=== PATIENT | male | born 1960 | race Caucasian/White ===

== ENCOUNTER 2024-06-09 17:29 | Emergency (ER) | payer MEDICAID, OTHER, SELFPAY ==
[2024-06-09] VITALS (11 sets, daily range): BP systolic 173–201; BP diastolic 87–95; PULSE 60; RESP 12–22; TEMP 36.6; O2SAT 94–99; BMI 32.8
--- NOTE | 2024-06-09 17:38 | DI.RAD.S_ITS ---
PROCEDURE: XR CHEST 1V INDICATIONS: chest pain TECHNIQUE: One view of the chest was acquired. COMPARISON: None. FINDINGS: Surgical changes and devices: Pacemaker. Lungs and pleura: Lungs are clear. No pleural effusions or pneumothorax. Mediastinum: Mediastinal contours appear normal. Heart size is normal. Bones and chest wall: No suspicious bony lesions. Overlying soft tissues appear unremarkable. IMPRESSION: No acute pulmonary process. Dictated by: Gracia Fuentes M.D. on 06/09/2024 at 18:02 Approved by: Gracia Fuentes M.D. on 06/09/2024 at 18:02
[2024-06-09 17:44] LABS: Add Manual Diff / Slide Review NO; Basophils Absolute Auto 100 /uL (0-100); Basophils Percent Auto 1.4 % (0-2); Eosinophils Absolute Auto 300 /uL (0-450); Eosinophils Percent Auto 5.1 % (2-4); Hematocrit 44.4 % (41-53); Hemoglobin 15.2 g/dL (13.5-17.5); Lymphocytes Absolute Auto 2000 /uL (1100-4500); Lymphocytes Percent Auto 30.1 % (25-40); Mean Corpuscular HGB Conc 34.1 % (30-36); Mean Corpuscular Hemoglobin 30.7 PG (26-34); Mean Corpuscular Volume 89.8 fL (80-100); Monocytes Absolute Auto 500 /uL (0-900); Monocytes Percent Auto 7.6 % (3-14); Neutrophils Absolute Auto 3700 /uL (1500-7000); Neutrophils Percent Auto 55.8 % (50-75); Platelet Count 262 X10^3/uL (150-400); Red Blood Cell Count 4.94 X10^6/uL (4.5-5.9); Red Cell Distribution Width 13.8 % (11.6-14.8); White Blood Cell Count 6.7 X10^3/uL (4.5-11.0)
[2024-06-09 17:57] LABS: Lactate (Lactic Acid) 2.3 mmol/L (0.7-2.1)
[2024-06-09 17:58] LABS: Alanine Aminotransferase 26 IU/L (<50); Albumin 3.9 g/dL (3.5-5.0); Albumin Globulin Ratio 1.3 (1.0-2.8); Alkaline Phosphatase 70 U/L (38-126); Aspartate Aminotransferase 20 IU/L (17-59); BUN Creatinine Ratio 21.1 (6-22); Bilirubin Total 0.6 mg/dL (0.2-1.3); Blood Urea Nitrogen 20 mg/dL (9-20); Calcium 9.1 mg/dL (8.4-10.2); Carbon Dioxide 22 mmol/L (22-32); Chloride 107 mmol/L (98-107); Creatine Kinase 54 U/L (55-170); Estimated Glomerular Filt Rate > 60 mL/min (>60); Globulin 3.1 g/dL (1.7-4.1); Glucose 280 mg/dL (80-110); HEMOLYSIS < 15 (0-50); Lipase 808 U/L (23-300); Potassium 4.4 mmol/L (3.4-5.1); Sodium 137 mmol/L (137-145)
[2024-06-09 18:11] LABS: Troponin I < 0.012 ng/mL (0.01-0.034)
[2024-06-09] MEDS: SODIUM CHLORIDE 0.9% 1,000 ML 150 ML IV (18:18)
--- NOTE | 2024-06-09 18:32 | ED_ITS ---
HPI - General Adult General Chief complaint: Diabetic Problem Stated complaint: light headed/ [place] Time Seen by Provider: 06/09/24 18:16 Source: patient and EMS Mode of arrival: EMS History of Present Illness HPI narrative: Patient 63-year-old male history of insulin-dependent diabetes pacemaker secondary to atrial fibrillation not on anticoagulation presenting today with a glucose problem. He reports that he was hypoglycemic with his continuous glucose monitor reporting in the 50s this afternoon. He says that he has not really eaten much today he gave himself 10 units of his Lantus last night this does not feel great. He reports that the glucose monitor said it was 55 he took a tbsp of honey and went to the fire department. There glucose monitor said it was in the 200s and brought him here to the ED. He denies any sort of symptoms he has no fever no chills no headache no sore throat chest pain shortness of breath palpitations abdominal pain nausea vomiting or any other symptoms. I have reviewed his glucose monitor it does show that he had glucose this morning the 115-120 range and then did drop off in the afternoon 53-[address] Are POC glucose shows 305. Patient History Social History Smoking Status: Former smoker Smoking Status: Former smoker alcohol intake frequency: 0-2 drinks per day Substance Use Type: does not use Exam Initial Vital Signs Initial Vital Signs: Vital Signs Pulse Rate 60 06/09/24 17:38 Respiratory Rate 13 06/09/24 17:38 Pulse Oximetry 96 06/09/24 17:38 GENERAL: Alert 63-year-old male and in no acute distress. HEENT: Head atraumatic,EOMI, pupils reactive, face symmetric, moist mucous membranes CARDIOVASCULAR: Regular rate and rhythm without murmurs, rubs or gallops. RESPIRATORY: Breath sounds equal bilaterally, no wheezes rales or rhonchi. ABDOMEN: Soft, nontender. Normoactive bowel sounds all 4 quadrants. No guarding or rebound. EXTREMITIES: Normal range of motion, no clubbing or edema. Neurovascularly intact NEUROLOGICAL: Alert and oriented x4.Normal gait and speech. [employer] strength equal bilaterally moving all extremities SKIN: Warm, dry, no laceration, no petechiae, no rashes or lesions. Course Orders Ordered: Discontinued Medications Sodium Chloride (Normal Saline 0.9%) 1,000 mls @ 150 mls/hr IV CONT OMARI Last Infusion: 06/09/24 20:48 Dose: Infused Documented By: Admin: 06/09/24 18:18 Dose: 150 mls/hr Documented By: CHELSEA Vital Signs Vital signs: Vital Signs - 8 hr 06/09/24 17:38 06/09/24 17:43 06/09/24 18:00 Temperature 97.9 F Pulse Rate 60 60 60 Respiratory Rate 13 20 15 Blood Pressure 175/87 H Pulse Oximetry 96 99 96 Oxygen Delivery Method Room Air 06/09/24 18:30 06/09/24 18:54 06/09/24 18:54 Temperature Pulse Rate 60 60 Respiratory Rate 12 14 Blood Pressure 201/95 H Pulse Oximetry 94 97 Oxygen Delivery Method 06/09/24 18:55 06/09/24 18:55 06/09/24 19:00 Temperature Pulse Rate 60 60 Respiratory Rate 16 13 Blood Pressure 187/93 H Pulse Oximetry 97 96 Oxygen Delivery Method 06/09/24 19:30 06/09/24 20:00 06/09/24 20:30 Temperature Pulse Rate 60 60 60 Respiratory Rate 22 16 15 Blood Pressure Pulse Oximetry 95 96 96 Oxygen Delivery Method 06/09/24 20:36 06/09/24 20:36 Temperature Pulse Rate 60 Respiratory Rate 17 Blood Pressure 173/89 H Pulse Oximetry 97 Oxygen Delivery Method Medical Decision Making Lab Data 06/09/24 17:36 06/09/24 17:36 Labs: Lab Results 06/09/24 06/09/24 06/09/24 Range/Units 17:36 17:55 19:30 WBC 6.7 (4.5-11.0) X10^3/uL RBC 4.94 (4.5-5.9) X10^6/uL Hgb 15.2 (13.5-17.5) g/dL Hct 44.4 (41-53) % MCV 89.8 (80-100) fL MCH 30.7 (26-34) PG MCHC 34.1 (30-36) % RDW 13.8 (11.6-14.8) % Plt Count 262 (150-400) X10^3/uL Neut % (Auto) 55.8 (50-75) % Lymph % (Auto) 30.1 (25-40) % [place] % (Auto) 7.6 (3-14) % Eos % (Auto) 5.1 H (2-4) % Baso % (Auto) 1.4 (0-2) % Neut # (Auto) 3700 (3695-1710) /uL Lymph # (Auto) 2000 (7576-2270) /uL [place] # (Auto) 500 (0-900) /uL Eos # (Auto) 300 (0-450) /uL Baso # (Auto) 100 (0-100) /uL Sodium 137 (137-145) mmol/L Potassium 4.4 (3.4-5.1) mmol/L Chloride 107 (98-107) mmol/L Carbon Dioxide 22 (22-32) mmol/L BUN 20 (9-20) mg/dL Creatinine 0.95 (0.66-1.25) mg/dL Estimated GFR > 60 (>60) mL/min BUN/Creatinine Ratio 21.1 (6-22) Glucose 280 H (80-110) mg/dL Lactate 2.3 H 1.7 (0.7-2.1) mmol/L Calcium 9.1 (8.4-10.2) mg/dL Total Bilirubin 0.6 (0.2-1.3) mg/dL AST 20 (17-59) IU/L ALT 26 (<50) IU/L Alkaline Phosphatase 70 (38-126) U/L Total Creatine Kinase 54 L (55-170) U/L Troponin I < 0.012 (0.01-0.034) ng/mL Total Protein 7.0 (6.3-8.2) g/dL Albumin 3.9 (3.5-5.0) g/dL Globulin 3.1 (1.7-4.1) g/dL Albumin/Globulin Ratio 1.3 (1.0-2.8) Lipase 808 H (23-300) U/L SARS-CoV-2 (PCR) Negative (Negative) Influenza A (RT-PCR) Flu a negative (NEGATIVE) Influenza B (RT-PCR) Flu b negative (NEGATIVE) RSV (PCR) Negative (Negative) Point of Care Testing Glucose POC 242 Urine Dip Bedside Urine Glucose 1000 mg/dl Bedside Urine Bilirubin - Negative Bedside Urine Ketone - Negative Urine Specific [place] 1.020 Bedside Urine Occult Blood - Negative Bedside Urine pH 6.5 Bedside Urine Protein - Negative Bedside Urine Urobilinogen - Negative Bedside Urine Nitrite - Negative Bedside Urine Leukocytes - Negative Esterase Point of care testing: Point of Care Testing Glucose POC 242 Urine Dip Bedside Urine Glucose 1000 mg/dl Bedside Urine Bilirubin - Negative Bedside Urine Ketone - Negative Urine Specific [place] 1.020 Bedside Urine Occult Blood - Negative Bedside Urine pH 6.5 Bedside Urine Protein - Negative Bedside Urine Urobilinogen - Negative Bedside Urine Nitrite - Negative Bedside Urine Leukocytes - Negative Esterase Imaging Data Chest x-ray: Radiologist's Impression: PROCEDURE: XR CHEST 1V INDICATIONS: chest pain TECHNIQUE: One view of the chest was acquired. COMPARISON: None. FINDINGS: Surgical changes and devices: Pacemaker. Lungs and pleura: Lungs are clear. No pleural effusions or pneumothorax. Mediastinum: Mediastinal contours appear normal. Heart size is normal. Bones and chest wall: No suspicious bony lesions. Overlying soft tissues appear unremarkable. IMPRESSION: No acute pulmonary process. Dictated by: Gracia Fuentes M.D. on 06/09/2024 at 18:02 ECG Data Attestation: I personally reviewed and interpreted this ECG as follows: Prior ECG tracings: available for review MDM Narrative Medical decision making narrative: Patient is 63-year-old male history of diabetes presenting today with not feeling well and hypoglycemia. He reports he has not eating he has a continuous glucose monitor but does report that he was having low glucose in the 50s. However his monitor does not correlate with EMS and does not correlate with are POC here. I actually asked him to scan and see what his continuous monitor says here however it said that the sensor was not working and needed to be replaced. I suspect that he has having a sensor problem firefighters got that he had a glucose in the 200s and here we have that he has a POC of 305. Blood work has been reviewed he has no leukocytosis no anemia no electrolyte abnormalities no [place] he did have mild elevated lactate 2.3 that quickly went down to 1.7 lipase was slightly elevated at 800 but not clinically significant he had no real significant abdominal pain bilirubin and liver enzymes were within normal limits Chest x-ray reviewed no acute cardiopulmonary process EKGs Patient ate food here he is overall feeling better. I suspect that there is some sort of glucose issue and he needs to replace his sensor monitor. He understands this and will do so when he gets home. Discharge Plan Departure Patient Disposition: Home Clinical Impression: Diabetes mellitus Instructions: Hypoglycemia Activity Restrictions/Additional Instructions: *You have been diagnosed with diabetic problem, low glucose *What to do: At this time I no longer sensory is quite working right says that you need a new sensor so please replace that. Your sugar was never low here. Please go home eat a full meal and give herself insulin tonight *Continue to take medications as directed *Follow up with your primary care provider in 2-3 days or call [phone] *Return to ER if you should have any new, worsening or concerning symptoms Stand Alone Forms: Patient Portal/API
[2024-06-09 18:49] LABS: Influenza A - CEPHEID Flu A NEGATIVE (NEGATIVE); Influenza B - CEPHEID Flu B NEGATIVE (NEGATIVE); Respiratory Syncytial Virus Negative (Negative)
[2024-06-09 18:51] LABS: COVID-19 CEPHEID 4-PLEX PCR Negative (Negative)
[2024-06-09 19:17] LABS: Reflexed Lactate in 2 Hours Y
[2024-06-09 19:52] LABS: Lactate 2HR (Lactic Acid Rflx) 1.7 mmol/L (0.7-2.1)
== END 2024-06-09 20:50 | disposition home or self-care (01) ==
PROVIDERS: Emergency Provider Emergency Medicine
DX: E11.649 Type 2 diabetes mellitus with hypoglycemia without coma (principal); Z79.4 Long term (current) use of insulin
CPT/HCPCS: 87635; 87400 ×2; 87420; 0241U; 36415; 71045; 80053; 81003; 82550; 82962; 83605; 83690; 84484; 85025; 99284